=== PATIENT | female | born 1995 | race Caucasian/White ===

== ENCOUNTER 2025-05-10 12:12 | Outpatient (CLI) | payer MEDICAID, SELFPAY ==
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
--- OUTSIDE RECORDS SUMMARY | 2025-04-13 15:00 | XMS_ITS | Encounter Summary ---
Author Organization [facility] Address [address] [place] [address] Care Team Providers Care Automat Car Attendant Name Role Phone Itzel Hoffmann TIRE RECAPPING MACHINE OPERATOR Primary Care Provider [phone]- [phone] Reason for Visit * Reason Comments Follow-up Encounter Details Date Type Department Care Team (Late st Contact Info) Description 04/13/2025 3:00 PM EDT Office Visit [facility] [address] [place] [phone] Itzel Hoffmann, TIRE RECAPPING MACHINE OPERATOR [address] [place] [address] [phone] Anxiety with depression (Primary Dx) Social History [...] Sign Reading Time Taken Comments Blood Pressure 106/74 04/13/2025 2:51 PM EDT Pulse 74 04/13/2025 2:51 PM EDT Temperature 36.7 C (98 F) 04/13/2025 2:51 PM EDT Respiratory Rate 16 04/13/2025 2:51 PM EDT Oxygen Saturation 98% 04/13/2025 2:51 PM EDT Inhaled Oxygen Concentration - - Weight 62.1 kg (137 lb) 04/13/2025 2:51 PM EDT Height 157.5 cm (5' 2 ) 04/13/2025 2:51 PM EDT Body Mass Index 25.06 04/13/2025 2:51 PM EDT documented in this encounter Progress Notes * Itzel Hoffmann, TIRE RECAPPING MACHINE OPERATOR - 04/19/2025 9:07 PM EDTAssociated Problem(s): Anxiety with depression Patient [...] her with the transition. Patient has now in herthird week of weaning per our guidelines. -Patient now having to see counseling service through [facility] per [facility] order -Continue lamotrigine 100mg daily -Continue zoloft 50mg daily -Weaning klonopin as follows: Klonopin 1mg daily x 14 day Klonopin 0.5mg daily x 14 days Klonopin 0.5mg every other day x 14 days then DC -She has hydroxyzine 25mg three times daily PRN for breakthrough anxiety -Follow up in two weeks * Itzel Hoffmann APRN - 04/13/2025 3:00 PM EDT Images from the original note were not included. Office Note Name: Joyce Awad : 1995 Chief Complaint Follow-up Subjective History of Present Illness: Joyce Awad is a 29 y.o. female who presents today for taking follow-up on tapering of benzodiazepines. Patient was taken to [facility] via EMS with suicidal ideation and overdosing on klonopin andcarvedilol. Patient had never attempted any form of [...] made her mean . We then conducted [employer] test which led us to start lamotrigine. During our first follow up after starting lamotrigine, patient stated she felt like lamotrigine was helping, her friend had noticed she seems to be less triggered by things that would normally send her into a fit of rage or panic. In addition to her lamotrigine patient was startedon Zoloft at 50 mg daily dosing as [...] her children and fishing. Since DC from [facility] facility she is now trying to wean from klonopin. She was offered rehab but wanted she and I to work on a weaning plan together instead. Patient is now staying with her mother who is helping her with the transition. Patient is now in her third week of weaning per our guidelines. She states it has been rough on at least two occasions, she was begging her mother for klonopin but her mother did not give in. She feels it is getting easier everyday. She does have sparingly used hydroxyzine for breakthrough panic. Review of Systems Constitutional: Negative for fatigue. Respiratory: Negative for cough, chest tightness and shortness of breath. Cardiovascular: Negative for chest pain, palpitations and leg swelling. Gastrointestinal: Negative for abdominal pain, diarrhea, nausea and vomiting. Neurological: Negative for dizziness, weakness, light-headedness and headache. Psychiatric/Behavioral: Positive for stress. Negative for agitation, self- injury, sleep disturbance, suicidal ideas and depressed mood. Objective Past Medical History: Diagnosis Date Abnormal [...] No Known Problems Brother Vital Signs BP 106/74 (BP Location: Left arm, Patient Position: Sitting, Cuff Size: Adult) Pulse 74 Temp 98??F (36.7 ??C) (Temporal) Resp 16 Ht 157.5 cm (62 ) Wt 62.1 kg (137 lb) SpO2 98% BMI 25.06 kg/m?? Estimated body mass index is 25.06 kg/m?? as calculated from the following: Height as of this encounter: 157.5 cm (62 ). Weight as of this encounter: 62.1 kg (137 lb). Facility age limit for growth %chris [...] orders placed or performed in visit on 04/13/25 Urine Drug Screen - Urine, Clean Catch Collection Time: 04/13/25 2:59 PM Specimen: Urine, Clean Catch Urine Release to andrew Result Value Ref Range Amphetamine, Urine Qual Negative [place]vk[place]=6516 ng/mL Barbiturates Screen, Urine Negative Gqtyll=814 ng/mL Benzodiazepine Screen, Urine Negative Gaioyf=890 ng/mL THC Screen, Urine Negative Cutoff=20 ng/mL Cocaine Screen, Urine Negative Uvxtjn=704 ng/mL Opiate Screen, Urine Negative Rayvfi=731 ng/mL Oxycodone/Oxymorphone, Urine Negative Sfgejv=757 ng/mL Phencyclidine (PCP), Urine Negative Cutoff=25 ng/mL Methadone Screen, Urine Negative Jommak=714 ng/mL Propoxyphene Screen Negative Mmnsks=358 ng/mL Creatinine, Urine 244.4 20.0 - 300.0 mg/dL pH, UA 5.3 4.5 - 8.9 Please note Comment Assessment and Plan Diagnoses and all orders [...] made her mean . We then conducted [employer] test which led us to start lamotrigine. [...] her with the transition. Patient has now in herthird week of weaning per our guidelines. -Patient now having to see counseling service through [facility] per [facility] order -Continue lamotrigine 100mg daily -Continue zoloft 50mg daily -Weaning klonopin as follows: Klonopin 1mg daily x 14 day Klonopin 0.5mg daily x 14 days Klonopin 0.5mg every other day x 14 days then DC -She has hydroxyzine 25mg three times daily PRN for breakthrough anxiety -Follow up in two weeks Orders: - Urine Drug Screen - Urine, Clean Catch; Future - Urine Drug Screen - Urine, Clean Catch Follow Up Return in about 4 weeks (around 05/11/2025) for Next scheduled follow up. Itzel Hoffmann APRN documented in this encounter Plan of Treatment Upcoming Encounters Date Type Department Care Team (Late st Contact Info) Description 05/11/2025 10:45 AM EDT Office Visit [facility] [address] [place] [address] [place] [phone] Itzel Hoffmann, TIRE RECAPPING MACHINE OPERATOR [address] [place] [address] 06/04/2025 9:00 AM EDT Office Visit [facility] [address] [place] [phone] Itzel Hoffmann, TIRE RECAPPING MACHINE OPERATOR [address] [place] [address] 06/08/2025 2:00 PM EDT Office Visit [facility] [address] [place] [phone] Itzel Hoffmann, TIRE RECAPPING MACHINE OPERATOR [address] [place] [address] 05/07/2026 11:30 AM EDT Office Visit [facility] [address] [facility] [place] [phone] Brook Barrera, MAIK [address] [place], [place] [id number] documented as of this encounter Procedures Procedure Name Priority Date/Time Associated Diagnosis Comments URINE DRUG SCREEN Routine 04/13/2025 2:5 9 PM EDT Anxiety with depression documented in this encounter Results * Urine Drug Screen - Urine, Clean Catch (04/13/2025 2:59 PM EDT) Amphetamine, Urine Qual Negative Cutoff=10 00 ng/mL [facility] Barbiturates Screen, Urine Negative Cutoff=20 0 ng/mL [facility] Benzodiazepine Screen, Urine Negative Cutoff=20 0 ng/mL [facility] THC Screen, Urine Negative Cutoff=20 ng/mL [facility] Cocaine Screen, Urine Negative Cutoff=30 0 ng/mL [facility] Opiate Screen, Urine Negative Cutoff=30 0 ng/mL [facility] Comment:Opiate test includes Codeine, Morphine, Hydromorphone, Hydrocodone. Oxycodone/Oxymorph one, Urine Negative Cutoff=10 0 ng/mL [facility] Comment:Test includes Oxycod one and Oxymorphone Phencyclidine (PCP), Urine Negative Cutoff=25 ng/mL [facility] Methadone Screen, Urine Negative Cutoff=30 0 ng/mL [facility] Propoxyphene Screen Negative Cutoff=30 0 ng/mL [facility] Creatinine, Urine 244.4 20.0 - 300.0 mg/dL [facility] pH, UA 5.3 4.5 - 8.9 [facility] Please note Comment [facility] Comment: This assay provides a preliminary unconfirmed analytical test result that may be suitable for clinical management of patients in certain situations. Drug-test results should be interpreted in the context of clinical information. Patient metabolic variables, specific drug chemistry, and specimen characteristics can affect test outcome. Technical consultation is available if a test result is inconsistent with an expected outcome. Email: [email or web address] Urine Urine specimen obtained by clean catch procedure / Unknown 04/13/2025 2:59 PM EDT 04/13/2025 Comment:Urine Release to [facility]ay[facility] (AMBULATORY) - 04/14/2025 8:07 PM EDT Performed at: 01 - [facility] [address] [place], [place] [id number] Cementer Hand: Shira Sears PhD, Phone: [phone] Itzel Hoffmann APRN URINE ORDERABLES Final Resu lt [facility] ([facility]) [address] [place] [address], [place] [phone] [facility] [address] [place] [address], [place] [phone] documented in this encounter Visit Diagnoses Diagnosis Anxiety with depression- Primary documented in this encounter Care Teams Automat Car Attendant Relationship Specialty Start Date End Date Itzel Hoffmann APRN [address] [place], [place] [id number] PCP - General Family Medicine 10/06/24 documented as of this encounter
--- OUTSIDE RECORDS SUMMARY | 2025-05-02 10:30 | XMS_ITS | Encounter Summary ---
[facility] Address [address] [place] [address] Care Team Providers Care Staff Cytotechnologist Name Role Phone Itzel Hoffmann APRN Primary Care Provider [phone] Reason for Referral * Durable Medical Equipment (Routine) - Authorized Specialty Diagnoses / Procedures Referred By Contac t Referred To Contact Diagnoses JOHNATHAN (obstructive sleep apnea) Palpitations Procedures PAP Therapy Brook Barrera APRN [address] [place] [address] Phone: tel: fax: TOOTIE KALLIE MACHADO [address] [place] [address] Phone: tel: fax: Referral ID Status Reason Start Date Expiration Date V isits Requested Visits Authorized [id number] Authorized 05/02/2025 08/01/2026 1 1 Reason for Visit * Reason Comments Sleep Apnea Pt is here for a fol low up on JOHNATHAN. Pt states her PAP is broken and needs a new one. Pt hasn't used PAP in 2-3 months. Pt states she has SOA, palpitations, dizziness. No falls, no chest pain. Pt states she is exhausted everyday Encounter Details Date Type Department Care Team (Late st Contact Info) Description 05/02/2025 10:30 AM EDT Office Visit [facility] [address] [place] [phone] Brook Barrera APRN [address] [place] [id number] JOHNATHAN (obstructive sleep apnea) (Primary Dx); Palpitations Social History Tobacco Use Types Packs/Day Years [...] Sign Reading Time Taken Comments Blood Pressure 116/64 05/02/2025 10:44 AM EDT Pulse 72 05/02/2025 10:44 AM EDT Temperature 36.7 C (98 F) 05/02/2025 10:44 AM EDT Respiratory Rate - - Oxygen Saturation 98% 05/02/2025 10:44 AM EDT Inhaled Oxygen Concentration - - Weight 61.7 kg (136 lb) 05/02/2025 10:44 AM EDT Height 157.5 cm (5' 2 ) 05/02/2025 10:44 AM EDT Body Mass Index 24.87 05/02/2025 10:44 AM EDT documented in this encounter Progress Notes * Brook Barrera APRN - 05/02/2025 10:30 AM EDT Images from the original note were not included. Date: 05/02/2025 Name: Joyce Awad : 1995 PCP: Itzel Hoffmann APRN REF: No ref. provider found Sleep and/or Cardiology Consulting Provider Note ..Sleep Apnea (Pt is here for a follow up on JOHNATHAN. Pt states her PAP is broken and needs a new one. Pt hasn't used PAP in 2-3 months. Pt states she has SOA, palpitations, dizziness. No falls, no chestpain. Pt states she is exhausted everyday ) History of Present Illness The patient presents to follow up on obstructive sleep apnea and palpitations. She has been using a PAP machine, which has significantly improved her condition. However, insurance will only cover the cost of a new machine every 5 years and her machine stopped working. She is considering purchasing a used machine for $200 to $400. She reports losing 40 pounds since discontinuing the use of the machine approximately 4 months ago and has not lost any more weight since then. She inquires about the necessity of a new sleep study and whether she can continue using the machine nightly without any harm. She continues to take carvedilol for palpitations, as prescribed by Dr. Sosa. SOCIAL HISTORY Marital Status: Tobacco: The patient smokes cigarettes. Coffee/Tea/Caffeine-containing Drinks: The patient drinks coffee. [place] Scale is (out of 24): Total score: 17 No specialty comments available. Medications Discontinued During This Encounter Medication Reason carvedilol (COREG) 6.25 MG tablet Patient Reported Not Taking clonazePAM (KlonoPIN) 1 MG tablet *Therapy completed fluticasone (FLONASE) 50 MCG/ACT nasal spray *Therapy completed Allergies Allergen Reactions Clindamycin Other (See Comments) Pt states she felt like bugs were biting her all over Current Outpatient Medications: albuterol sulfate HFA 108 (90 Base) MCG/ACT inhaler, , Disp: , Rfl: carvedilol (COREG) 3.125 MG tablet, Take 1 tablet by mouth 2 (Two) Times a Day With Meals., Disp: ,Rfl: hydrOXYzine pamoate (VISTARIL) 25 MG capsule, Take 1 capsule by mouth 3 (Three) Times a Day As Needed for Anxiety., Disp: 90 capsule, Rfl: 0 lamoTRIgine (LaMICtal) 100 MG tablet, Take 1 tablet by mouth Daily., Disp: 90 tablet, Rfl: 1 levothyroxine (SYNTHROID, LEVOTHROID) 50 MCG tablet, Take 1 tablet by mouth Every Morning., Disp: 90 tablet, Rfl: 2 ondansetron (ZOFRAN) 8 MG tablet, Take 1 tablet by mouth Every 8 (Eight) Hours As Needed for Nauseaor Vomiting., Disp: 20 tablet, Rfl: 0 sertraline (ZOLOFT) 50 MG tablet, TAKE 1 TABLET BY MOUTH EVERY DAY, Disp: 30 tablet, Rfl: 0 Nicotine 21-14-7 MG/24HR kit, Place 1 patch on the skin as directed by provider Daily. (Patient nottaking: Reported on 05/02/2025), Disp: 56 each, Rfl: 0 Past Medical History: Diagnosis Date Abnormal electrocardiogram Anxiety disorder JOSÉ (generalized anxiety disorder) GERD without esophagitis History of normal Holter exam 03/2022 Hypertension Other chest pain Other hypersomnia Palpitations SOB (shortness of breath) Supraventricular tachycardia Thyroid disease Tobacco smoke exposure EXTENSIVE HISTORY OF SMOKE EXPOSURE Patient Active Problem List Diagnosis JOHNATHAN (obstructive sleep apnea) Palpitations Paroxysmal SVT (supraventricular tachycardia) Anxiety with depression Benign essential hypertension Hypothyroidism in adult Right-sided headache Overweight (BMI 25.0-29.9) Annual physical exam Chronic gastritis without bleeding Shortness of breath Post traumatic stress disorder (PTSD) Insomnia due to other mental disorder Family History Problem Relation Age of Onset No Known Problems Sister No Known Problems Brother family history includes No Known Problems in her brother and sister. Social History Socioeconomic History Marital status: Tobacco Use Smoking status: Every Day Current packs/day: 1.00 Average packs/day: 1 pack/day for 0.7 years (0.7 ttl pk-yrs) Types: Cigarettes Start date: 08/10/2024 Smokeless tobacco: Never Vaping Use Vaping status: Former Passive vaping exposure: Yes Substance and Sexual Activity Alcohol use: Not Currently Drug use: Not Currently Sexual activity: Yes Vital Signs: BP 116/64 (BP Location: Right arm, Patient Position: Sitting, Cuff Size: Adult) Pulse 72 Temp 98 ??F (36.7 ??C) (Infrared) Ht 157.5 cm (62 ) Wt 61.7 kg (136 lb) SpO2 98% BMI 24.87 kg/m?? Estimated body mass index is 24.87 kg/m?? as calculated from the following: Height as of this encounter: 157.5 cm (62 ). Weight as of this encounter: 61.7 kg (136 lb). Physical Exam Vitals reviewed. Constitutional: Appearance: Normal appearance. She is well-developed. HENT: Head: Normocephalic and atraumatic. Eyes: General: No scleral icterus. Pupils: Pupils are equal, round, and reactive to light. Cardiovascular: Rate and Rhythm: Normal rate and regular rhythm. Heart sounds: Normal heart sounds. No murmur heard. Pulmonary: Breath sounds: Normal breath sounds. No wheezing or rhonchi. Musculoskeletal: General: Normal range of motion. Right lower leg: No edema. Left lower leg: No edema. Skin: General: Skin is warm and dry. Capillary Refill: Capillary refill takes less than 2 seconds. Coloration: Skin is not cyanotic. Nails: There is no clubbing. Neurological: Mental Status: She is alert and oriented to person, place, and time. Motor: No weakness. Gait: Gait normal. Psychiatric: Mood and Affect: Mood normal. Behavior: Behavior is cooperative. Thought Content: Thought content normal. Physical Exam Results Assessment and Plan Diagnoses and all orders for this visit: 1. JOHNATHAN (obstructive sleep apnea) (Primary) - PAP Therapy 2. Palpitations - PAP Therapy Assessment & Plan 1. Obstructive Sleep Apnea: - Significant improvement in symptoms reported with the use of the PAP machine. - A new prescription for the PAP machine will be provided, maintaining the same pressure settings. - Advised to contact the office if any issues arise with the new machine. - If discomfort with the pressure settings occurs, she can return for an adjustment or communicate via phone or message for a download check. - The order for the PAP machine will be sent to [facility] in [place]. - If no response from [facility] by Wednesday, she should contact them directly. - Her most recent PAP download before her machine stopped working shows that her pressure is consistently above the starting pressure of 8, she also reports still waking up gasping for air, and feelsvery poorly since she has been unable to use her machine. This is evidence that she continues to need her CPAP despite losing weight. No need to repeat study at this time. 2. Palpitations: - Currently taking carvedilol, prescribed by Dr. Sosa. - Advised to continue this medication. - If palpitations do not return to their normal level within a few weeks of resuming PAP therapy, areview of her condition will be necessary. Recommendations: ER if symptoms increase and Report if any new/changing symptoms immediately Follow Up Return in about 1 year (around 05/02/2026) for JOHNATHAN. Patient or patient manufacturing sales representative verbalized consent for the use of Ambient Listening during the visit with Brook Barrera APRN for chart documentation. 05/02/2025 18:06 EDT Brook Barrera APRN 05/02/2025 Please note that this explicitly excludes time spent on other separate billable services such as performing procedures or test interpretation, when applicable. This note was created using dictation software which occasionally transcribes nonsensical phrases. Please contact the provider if any clarification is needed. documented in this encounter Plan of Treatment Upcoming Encounters Date Type Department Care Team (Late st Contact Info) Description 05/11/2025 10:45 AM EDT Office Visit [address] [place] [phone] Itzel Hoffmann APRN [address] [place] [address] 06/04/2025 9:00 AM EDT Office Visit [address] [place] [phone] Itzel Hoffmann APRN [address] [place] [address] 06/08/2025 2:00 PM EDT Office Visit [address] [place] [phone] Itzel Hoffmann APRN [address] [place] [address] 05/07/2026 11:30 AM EDT Office Visit [facility] [address] [place] [phone] Brook Barrera APRN [address] [place] [address] documented as of this encounter Visit Diagnoses Diagnosis JOHNATHAN (obstructive sleep apnea)- Primary Obstructive sleep apnea (adult) (pediatric) Palpitations documented in this encounter Care Teams Staff Cytotechnologist Relationship Specialty Start Date End Date Itzel Hoffmann APRN [address] [phone] PCP - General Family Medicine 10/06/24 documented as of this encounter
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
--- OUTSIDE RECORDS SUMMARY | 2025-05-10 12:15 | XMS_ITS | Encounter Summary ---
[facility] [address] [place] [address] Care Team Providers Care Vice President Quality Improvement Name Role Phone Itzel Hoffmann Orlando PLEITEZ Primary Care Provider [phone] Encounter Details Date Type Department Care Team (Late st Contact Info) Description 04/02/2025 Refill [facility] [address] [place] [address] [place] [address] Gamal Diamond MD [address] [place], [place] [id number] Severe anxiety with panic Social History Tobacco Use Types Packs/Day Years [...] on file documented as of this encounter Miscellaneous Notes * Telephone Encounter - Elizabeth Aldana MA - 04/02/2025 1:40 PM EDT Pt was seen on 03/22 for f/u weaning of klonopin. It was discussed in Itzel's note that pt was to go from 1mg klonopin daily to 0.5mg daily x14 days and then 0.5mg every other day then DC completley.Itzel forgot to send in a refill of medication to complete the weaning process. She is completelyout and needs enough to get through the next 28 days. documented in this encounter Plan of Treatment Upcoming Encounters Date Type Department Care Team (Late st Contact Info) Description 05/11/2025 10:45 AM EDT Office Visit [facility] [address] [place] [address] [place] [phone] Itzel Hoffmann APRN [address] [place] [address] 06/04/2025 9:00 AM EDT Office Visit [facility] [address] [place] [phone] Itzel Hoffmann APRN [address] [place] [address] 06/08/2025 2:00 PM EDT Office Visit [facility] [address] [place] [address] [place] [phone] Itzel Hoffmann APRN [address] [place] [address] 05/07/2026 11:30 AM EDT Office Visit [facility] [address] [place] [phone] Brook Barrera APRN [address] [place] [address] documented as of this encounter Visit Diagnoses Diagnosis Severe anxiety with panic documented in this encounter Care Teams Vice President Quality Improvement Relationship Specialty Start Date End Date Itzel Hoffmann APRN [address] [place] [address] PCP - General Family Medicine 10/06/24 documented as of this encounter
--- OUTSIDE RECORDS SUMMARY | 2025-05-10 12:15 | XMS_ITS | Encounter Summary ---
[facility] [address] [place] [address] Care Team Providers Care Pacu Nurse Name Role Phone Itzel Hoffmann APRN Primary Care Provider [phone] Reason for Visit * Reason Comments Med Refill Encounter Details Date Type Department Care Team (Late st Contact Info) Description 03/23/2025 Refill [facility] [address] [place] [phone] Itzel Hoffmann APRN [address] [place] [address] Social History Tobacco Use Types Packs/Day Years [...] encounter Miscellaneous Notes * Telephone Encounter - Celina Hudson MA - 03/26/2025 8:49 AM EDT Rx sent documented in this encounter Plan of Treatment Upcoming Encounters Date Type Department Care Team (Late st Contact Info) Description 05/11/2025 10:45 AM EDT Office Visit [facility] [address] [place] [address] [place] [address] Itzel Hoffmann APRN [address] [place] [address] 06/04/2025 9:00 AM EDT Office Visit [address] [place] [address] Itzel Hoffmann PILOT TEACHER [address] [place], [place] [id number] 06/08/2025 2:00 PM EDT Office Visit [address] [place] [address] Itzel Hoffmann APRN [address] [place] [address] 05/07/2026 11:30 AM EDT Office Visit [facility] [address] [place] [address] Brook Barrera APRN [address] [place] [address] documented as of this encounter Visit Diagnoses Not on filedocumented in this encounter Care Teams Pacu Nurse Relationship Specialty Start Date End Date Itzel Hoffmann APRN [address] [place] [address] PCP - General Family Medicine 10/06/24 documented as of this encounter
--- OUTSIDE RECORDS SUMMARY | 2025-05-10 12:15 | XMS_ITS | Encounter Summary ---
[facility] Address [address] [place] [address] Care Team Providers Care Chemist Steroids Name Role Phone Itzel Hoffmann ENGINEERING TECHNICAL SPECIALIST Primary Care Provider [phone] Reason for Visit * Reason Onset Date Comments CALLBACK 05/08/2025 Encounter Details Date Type Department Care Team (Late st Contact Info) Description 05/08/2025 Telephone [facility] [address] [place] [phone] Itzel Hoffmann, ENGINEERING TECHNICAL SPECIALIST [address] [place], [place] [id number] CALLBACK Social History Tobacco Use Types Packs/Day Years [...] encounter Miscellaneous Notes * Telephone Encounter - Leny Mueller 05/08/2025 1:24 PM EDT I have spoke with Vicky and have let her know that the drug screen was negative. S[facility] [place] has checked and we are to give social professionals what they need with there being an investigation. * Telephone Encounter - Joe Dunn RegSched Rep - 05/08/2025 10:55 AM EDT Caller: RICHARD - [facility] Relationship: Best call back number: [phone] What is the best time to reach you: ANY TIME BEFORE 4:30 PM Who are you requesting to speak with (clinical staff, provider, specific staff member): CLINICAL STAFF Do you know the name of the person who called: RICHARD What was the call regarding: RICHARD WITH [facility] IS ASKING FOR A CALLBACK WITHTHE DRUG SCREENING RESULT FOR HER CLIENT. OKAY TO LEAVE SECURE VM. documented in this encounter Plan of Treatment Upcoming Encounters Date Type Department Care Team (Late st Contact Info) Description 05/11/2025 10:45 AM EDT Office Visit [address] [place] [phone] Itzel Hoffmann APRN [address] [place] [address] 06/04/2025 9:00 AM EDT Office Visit [address] [place] [phone] Itzel Hoffmann APRN [address] [place] [address] 06/08/2025 2:00 PM EDT Office Visit [address] [place] [phone] Itzel Hoffmann APRN [address] [place] [address] 05/07/2026 11:30 AM EDT Office Visit [facility] [address] [place] [address] Brook Barrera APRN [address] [place] [address] documented as of this encounter Visit Diagnoses Not on filedocumented in this encounter Care Teams Chemist Steroids Relationship Specialty Start Date End Date Itzel Hoffmann APRN [address] [place] [address] PCP - General Family Medicine 10/06/24 documented as of this encounter
--- OUTSIDE RECORDS SUMMARY | 2025-05-10 12:15 | XMS_ITS | Encounter Summary ---
Author Organization [facility] Address [address] [place] [address] Care Team Providers Care Ostomy Nurse Name Role Phone Arianna Donnelly APRN Primary Care Provider [phone] Cora Razo MD Primary Care Provider [phone] System, Provider Not In MD Primary Care Provider Unavailable Cora Razo MD Unavailable [phone] Reason for Visit * Reason Onset Date Comments Med Refill 10/02/2022 Encounter Details Date Type Department Care Team (Late st Contact Info) Description 10/02/2022 Refill [facility] [address] [place] [address] Arianna Donnelly APRN [address] [place] [address] Social History Tobacco Use Types Packs/Day Years Used Date Smoking Tobacco: Former Smokeless Tobacco: Never PHQ-2 Answer Date Recorded Patient Health Questionnaire-2 Score 1 03/14/2021 Comments Unknown Sex and Gender Information Value Date Recorded Sex Assigned at Not on file Legal Sex Female 6:44 PM EDT Gender Identity Not on file Sexual Orientation Not on file documented as of this encounter Plan of Treatment Not on file documented as of this encounter Visit Diagnoses Not on filedocumented in this encounter Care Teams Ostomy Nurse Relationship Specialty Start Date End Date Arianna Donnelly APRN [address] [place] [address] PCP - General 01/31/21 11/02/22 Cora Razo MD [address] [place] [address] PCP - General 11/03/22 03/10/25 System, Provider Not In, [address] [place] [address] PCP - General Family Medicine 03/11/25 Cora Razo MD [address] [place] [address] 03/11/25 documented as of this encounter
--- OUTSIDE RECORDS SUMMARY | 2025-05-10 12:15 | XMS_ITS | Clinical Summary ---
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 Itzel Hoffmann ERP CONSULTANT URINE ORDERABLES Final Resu lt [facility] (AMBULATORY) [address] [place] [address], [facility] [address] [place] [address], * TSH (05/03/2025 1:51 PM EDT) TSH 0.866 0.450 - 4.500 uIU/mL [facility] Blood Structure of left upper limb / Unknown 05/03/2025 1:51 PM EDT 05/03/2025 Comment:Blood Release to [facility] (AMBULATORY) - 05/04/2025 10:07 AM EDT Performed at: - [facility] [address] [place], [place] [id number] Sign Writer Hand: Carlo Quiros PhD, Phone: [phone] Itzel Hoffmann APRN LAB BLOOD ORDERABLES Final Result Performing Organization Address [facility]/ZIP Co de Phone Number [facility] (AMBULATORY) [address] [place] [address], [facility] [address] [place] [address], * T4, Free (05/03/2025 1:51 PM EDT) Free T4 1.29 0.82 - 1.77 ng/dL [facility] Blood Structure of left upper limb / Unknown 05/03/2025 1:51 PM EDT 05/03/2025 Comment:Blood Release to [facility] (AMBULATORY) - 05/04/2025 10:07 AM EDT Performed at: [facility] [address] [place] [id number] Sign Writer Hand: Carlo Quiros PhD, Phone: [phone] Itzel Hoffmann APRN LAB BLOOD ORDERABLES Final Result Performing Organization Address [facility]/ZIP Co de Phone Number [facility] (AMBULATORY) [address] [place] [address], [facility] [address] [place] [address], * Pulmonary Results Scan (02/19/2025) Dunia Cervantes MD PFT ORDERABLES Final Result * Hepatitis C Antibody (11/03/2024 11:39 AM EST) Hep C Virus Ab Non Reactive Non Reactive [facility] Comment: HCV antibody alone does not differentiate between previously resolved infection and active infection. Equivocal and Reactive HCV antibody results should be followed up with an HCV RNA test to support the diagnosis of active HCV infection. Blood Structure of left upper limb / Unknown 11/03/2024 11:39 AM EST 11/03/2024 Comment:Blood Release to cha cooney Nayeli [facility] (AMBULATORY) - 11/04/2024 6:06 AM EST Performed at: 01 - [facility] [address] [place], [place] [id number] Sign Writer Hand: Carlo Quiros PhD, Phone: [phone] Itzel Hoffmann APRN LAB BLOOD ORDERABLES Final Result [facility] [address] [place] [address], [place] [phone] [facility] [address] [place] [address], [place] [phone] from Last 3 Months or Most Recently Relevant to Health Maintenance Insurance [employer] Care Teams Overlocker Relationship Specialty Start Date End Date Itzel Hoffmann APRN [address] [phone] PCP - General Family Medicine 10/06/24
--- OUTSIDE RECORDS SUMMARY | 2025-05-10 12:15 | XMS_ITS | Encounter Summary ---
Author Organization Healthcare Address [address] [place] [address] Care Team Providers Care Ip Counsel Name Role Phone Arianna Donnelly APRN Primary Care Provider [phone] Sun Razo MD Primary Care Provider [phone] System, Provider Not In MD Primary Care Provider Unavailable Sun Razo MD Unavailable [phone] Encounter Details Date Type Department Care Team (Late st Contact Info) Description 07/14/2021 Outside Procedure External Location [address] [place] [address] Provider, [facility] Social History Tobacco Use Types Packs/Day Years [...] Procedure Name Priority Date/Time Associated Diagnosis Comments US THYROID 07/14/2021 9:50 AM EDT documented in this encounter Results * US Thyroid (07/14/2021 9:50 AM EDT) Anatomical Region Laterality Modality Thyroid, Neck Ultrasound 07/14/2021 9:50 AM EDT Narrative 07/14/2021 12:27 PM EDT [address] [address] Name: JOYCE WAYNE Exam Date: 07/14/2021 : 1995 Age 25 Gender: F Physician: SUN RAZO Facility: [facility] Facility HSV: Outpatient Exam: THYROID US THYROID ULTRASOUND HISTORY: Thyromegaly FINDINGS: SIZE: Normal. Right thyroid lobe measures 5.0 x 2.2 x 1.3 cm. Left lobe measures 4.7 x 1.4 x 1.0 cm. ECHOGENICITY: Homogeneous LESIONS: No focal lesion OTHER: No additional findings IMPRESSION: Unremarkable thyroid evaluation TI-RADS Not applicable RECOMMENDATION: No additional follow-up needed at this time Dictated By: GRADY ODOM Transcribed By: Samantha Chauhan Transcribed On: 07/14/2021 10:52 AM Electronically signed by: GRADY ODOM 07/14/2021 Thank you for referring JOYCE WAYNE to [facility]. Legally authenticated by LEI DRISCOLL 2021-07-14 12:14:13 Procedure Note Provider, [facility] - 07/14/2021 [place] [address] Name: JOYCE WAYNE Exam Date: 07/14/2021 : 1995 Age 25 Gender: F Physician: SUN RAZO Facility: [facility] Facility HSV: Outpatient Exam: THYROID US THYROID ULTRASOUND HISTORY: Thyromegaly FINDINGS: SIZE: Normal. Right thyroid lobe measures 5.0 x 2.2 x 1.3 cm. Leftlobe measures 4.7 x 1.4 x 1.0 cm. ECHOGENICITY: Homogeneous LESIONS: No focal lesion OTHER: No additional findings IMPRESSION: Unremarkable thyroid evaluation TI-RADS Not applicable RECOMMENDATION: No additional follow-up needed at this time Dictated By: GRADY ODOM Transcribed By: Samantha Chauhan Transcribed On: 07/14/2021 10:52 AM Electronically signed by: GRADY ODOM 07/14/2021 Thank you for referring JOYCE WAYNE to [facility]. Legally authenticated by LEI DRISCOLL 2021-07-14 12:14:13 us Generic [place] Provider IMG US PROCEDURES Fi nal Result documented in this encounter Visit Diagnoses Not on filedocumented in this encounter Additional Health Concerns Infection Onset Date Last Indicated Resolved Time COVID-19 Rule-Out 07/21/2022 07/21/2022 07/21/2022 6:28 PM EDT COVID 19 (Confirmed) 07/21/2022 07/21/2022 022 5:25 AM EST COVID-19 Rule-Out 08/30/2022 08/30/2022 08/30/2022 11:06 PM EST documented as of this encounter Care Teams Ip Counsel Relationship Specialty Start Date End Date Arianna Donnelly APRN [address] [place] [phone] PCP - General 01/31/21 11/02/22 Sun Razo MD [address] [place] [address] PCP - General 11/03/22 03/10/25 System, Provider Not In, [address] [place] [address] PCP - General Family Medicine 03/11/25 Sun Razo MD [address] [place] [address] 03/11/25 documented as of this encounter
--- OUTSIDE RECORDS SUMMARY | 2025-05-10 12:15 | XMS_ITS | Encounter Summary ---
Author Organization Healthcare Address [address] [place] [address] Care Team Providers Care Color Print Inspector Name Role Phone Arianna Donnelly APRN Primary Care Provider [phone] Cora Razo MD Primary Care Provider [phone] System, Provider Not In MD Primary Care Provider Unavailable Cora Razo MD Unavailable [phone] Reason for Visit * Reason Comments Med Refill Encounter Details Date Type Department Care Team (Late st Contact Info) Description 05/28/2021 Refill [place] OIL TANK CAR CLEANER [address] [place] [address] Veronica Gant MD [address] [place] [phone] Social History Tobacco Use Types Packs/Day Years Used Date Smoking Tobacco: Former Smokeless Tobacco: Never PHQ-2 Answer Date Recorded Patient Health Questionnaire-2 Score 1 03/14/2021 Comments Unknown Sex and Gender Information Value Date Recorded Sex Assigned at Not on file Legal Sex Female 6:44 PM EDT Gender Identity Not on file Sexual Orientation Not on file COVID-19 Exposure Response Date Recorded In the last month, have you been in contact with someone who was confirmed or suspected to have Coronavirus / COVID-19? No / Unsure 05/02/2021 10:16 AM EDT documented as of this encounter Plan of [...] documented as of this encounter Care Teams Color Print Inspector Relationship Specialty Start Date End Date Arianna Donnelly APRN [address] [place] [address] PCP - General 01/31/21 11/02/22 Cora Razo MD [address] [place] [address] PCP - General 11/03/22 03/10/25 System, Provider Not In, [address] [place] [address] PCP - General Family Medicine 03/11/25 Cora Razo MD [address] [place] [address] 03/11/25 documented as of this encounter
--- OUTSIDE RECORDS SUMMARY | 2025-05-10 12:15 | XMS_ITS | Encounter Summary ---
Author Organization Healthcare Address [address] [place] [address] Care Team Providers Care Production Welder Name Role Phone Arianna Donnelly APRN Primary Care Provider [phone] Cora Razo MD Primary Care Provider [phone] System, Provider Not In MD Primary Care Provider Unavailable Cora Razo MD Unavailable [phone] Reason for Visit * Reason Comments Med Refill Encounter Details Date Type Department Care Team (Late st Contact Info) Description 07/10/2021 Refill [place] FERTILIZER PROCESSING SUPERVISOR [address] [place] [address] Nena Mosley APRN, [facility] [address] [place] [address] Social History Tobacco Use Types Packs/Day Years [...] documented as of this encounter Care Teams Production Welder Relationship Specialty Start Date End Date Arianna Donnelly APRN [address] [place] [address] PCP - General 01/31/21 11/02/22 Cora Razo MD [address] [place] [address] PCP - General 11/03/22 03/10/25 System, Provider Not In, [address] [place] [address] PCP - General Family Medicine 03/11/25 Cora Razo MD [address] [place] [address] 03/11/25 documented as of this encounter
--- OUTSIDE RECORDS SUMMARY | 2025-05-10 12:15 | XMS_ITS | Encounter Summary ---
Author Organization [facility] Address [address] [place] [address] Care Team Providers Care Site Controller Name Role Phone Arianna Donnelly APRN Primary Care Provider [phone] Cora Razo MD Primary Care Provider [phone] System, Provider Not In MD Primary Care Provider Unavailable Cora Razo MD Unavailable [phone] Reason for Visit * Reason Comments Med Refill Encounter Details Date Type Department Care Team (Late st Contact Info) Description 07/18/2022 Refill [facility] [address] [place] [address] Arianna Donnelly APRN [address] [place] [address] Social History Tobacco Use Types [...] Exposure Response Date Recorded In the last 10 days, have yo u been in contact with someone who was confirmed or suspected to have Coronavirus/COVID-19? Yes 07/21/2022 2:25 PM EDT documented as of this encounter Functional Status * Calculated C-SSRS Risk Score (Lifetime/Recent) Answer Date of Assessment Author No Risk Indicated 07/21/2022 7:36 PM EDT Becky Laughlin, RN * Question Answer Date of Assessment Author 1. Wish to be (Past 1 Month) No 7:36 PM EDT Becky Laughlin, FRANCES 2. Non-Specific Active Suici ashvin Thoughts (Past 1 Month) No 07/21/2022 7:36 PM EDT Jorge Laughlin, RN 6. Suicidal Behavior (Lifetime) No 7:36 PM EDT Becky Laughlin, FRANCES documented as of this encounter Plan of Treatment Not on file documented as of this encounter Visit Diagnoses Not on filedocumented in this encounter Additional Health Concerns Infection Onset Date Last Indicated Resolved Time COVID-19 Rule-Out 07/21/2022 07/21/2022 07/21/2022 6:28 PM EDT COVID 19 (Confirmed) 07/21/2022 07/21/2022 5:25 AM EST COVID-19 Rule-Out 08/30/2022 08/30/2022 08/30/2022 11:06 PM EST documented as of this encounter Care Teams Site Controller Relationship Specialty Start Date End Date Arianna Donnelly APRN [address] [place] [address] PCP - General 01/31/21 11/02/22 Cora Razo MD [address] [place] [address] PCP - General 11/03/22 03/10/25 System, Provider Not In, [address] [place] [address] PCP - General Family Medicine 03/11/25 Cora Razo MD [address] [place] [address] 03/11/25 documented as of this encounter
--- OUTSIDE RECORDS SUMMARY | 2025-05-10 12:15 | XMS_ITS | Encounter Summary ---
Author Organization Healthcare Address [address] [place] [address] Care Team Providers Care Aerial Photograph Interpreter Name Role Phone Arianna Donnelly APRN Primary Care Provider [phone] Cora Razo MD Primary Care Provider [phone] System, Provider Not In MD Primary Care Provider Unavailable Cora Razo MD Unavailable [phone] Reason for Visit * Reason Comments Med Refill Encounter Details Date Type Department Care Team (Late st Contact Info) Description 06/21/2021 Refill [place] TRAILHEAD CONSTRUCTION WORKER [address] [place] [address] Nena Mosley APRN, [facility] [address] [place] [address] Social History Tobacco Use Types Packs/Day Years [...] documented as of this encounter Care Teams Aerial Photograph Interpreter Relationship Specialty Start Date End Date Arianna Donnelly APRN [address] [place] [address] PCP - General 01/31/21 11/02/22 Cora Razo MD [address] [place] [address] PCP - General 11/03/22 03/10/25 System, Provider Not In, [address] [place] [address] PCP - General Family Medicine 03/11/25 Cora Razo MD [address] [place] [address] 03/11/25 documented as of this encounter
--- NOTE | 2025-05-10 12:16 | XR_ITS ---
FINAL REPORT CLINICAL HISTORY: Assess fecal burden COMPARISON: None FINDINGS: A single view of the abdomen was obtained. There is a nonobstructive bowel gas pattern. There are no abnormally dilated loops of small bowel. There are no abnormal calcifications. IMPRESSION: Nonobstructive bowel gas pattern. Reviewed, Interpreted and Dictated by Sravan Gibbons MD Transcribed by Sandra Chávez Authenticated and . [facility]
--- OUTSIDE RECORDS SUMMARY | 2025-05-10 12:16 | XMS_ITS | Encounter Summary ---
Author Organization [facility] Address [address] [place] [address] Care Team Providers Care Warp Tier Name Role Phone Itzel Hoffmann APRN Primary Care Provider [phone] Encounter Details Date Type Department Care Team (Latest Contact Info) Description 04/13/2025 Travel Social History Tobacco Use Types Packs/Day Years [...] as of this encounter Plan of Treatment Upcoming Encounters Date Type Department Care Team (Late st Contact Info) Description 05/11/2025 10:45 AM EDT Office Visit [facility] [address] [place] [address] Itzel Hoffmann APRN [address] [place] [address] 06/04/2025 9:00 AM EDT Office Visit [facility] [address] [place] [address] [place] [address] Itzel Hoffmann APRN [address] [place], [place] [id number] 06/08/2025 2:00 PM EDT Office Visit [facility] [address] [place] [address] [place] [address] Itzel Hoffmann APRN [address] [place], [place] [id number] 05/07/2026 11:30 AM EDT Office Visit [facility] [address] [place] [address] Brook Barrera APRN [address] [place], [place] [phone] documented as of this encounter Visit Diagnoses Not on filedocumented in this encounter Care Teams Warp Tier Relationship Specialty Start Date End Date Itzel Hoffmann APRN [address] [place] [address] PCP - General Family Medicine 10/06/24 documented as of this encounter
--- OUTSIDE RECORDS SUMMARY | 2025-05-10 12:16 | XMS_ITS | Encounter Summary ---
[facility] Address [address] [place] [address] Care Team Providers Care Almond Roaster Name Role Phone TahiraItzel barnes Orlando PLEITEZ Primary Care Provider [phone] Reason for Visit * Reason Onset Date Comments BRIEN CERVANTES MD, APPT 04/11/2025 Encounter Details Date Type Department Care Team (Late st Contact Info) Description 04/11/2025 Telephone [facility] [address] [place] [address] Brien Cervantes MD [address] [place] [address] BRIEN CERVANTES MD, APPT Social History Tobacco Use Types Packs/Day Years [...] encounter Miscellaneous Notes * Telephone Encounter - Radha Alegre RegSched Rep - 04/11/2025 3:19 PM EDT Caller: Spencerjuan Joyce Relationship to patient: Self Best call back number: [phone] Chief complaint: Type of visit: FOLLOW UP Requested date: RANJANA If rescheduling, when is the original appointment: N/A Additional notes:PATIENT LAST IN OFFICE NOVEMBER 2022 NEEDS APPOINTMENT TO BE SEEN. PATIENT IS WAKING UP GASPING FOR AIR. PLEASE REACH OUT. documented in this encounter Plan of Treatment Upcoming Encounters Date Type Department Care Team (Late st Contact Info) Description 05/11/2025 10:45 AM EDT Office Visit [facility] [address] [place] [address] Itzel Hoffmann, MAIK [address] [place] [address] 06/04/2025 9:00 AM EDT Office Visit [address] [place] [address] Itzel Hoffmann, MACHINE LEATHER TRIMMER [address] [place] [address] 06/08/2025 2:00 PM EDT Office Visit [address] [place] [address] Itzel Hoffmann MACHINE LEATHER TRIMMER [address] [place] [address] 05/07/2026 11:30 AM EDT Office Visit [facility] [address] [place] [address] Brook Barrera APRN [address] [place] [address] documented as of this encounter Visit Diagnoses Not on filedocumented in this encounter Care Teams Almond Roaster Relationship Specialty Start Date End Date Itzel Hoffmann APRN [address] [place] [address] PCP - General Family Medicine 10/06/24 documented as of this encounter
--- OUTSIDE RECORDS SUMMARY | 2025-05-10 12:16 | XMS_ITS | Encounter Summary ---
Author Organization [facility] Address [address] [place] [address] Care Team Providers Care Back Hanger Name Role Phone System, Provider Not In MD Primary Care Provider Unavailable Cora Razo MD Unavailable [phone] Encounter Details Date Type Department Care Team (Latest Contact Info) Description 03/11/2025 Travel Social History Tobacco Use Types Packs/Day [...] on file documented as of this encounter Functional Status * Calculated C-SSRS Risk Score (Lifetime/Recent) Answer Date of Assessment Author High Risk 03/11/2025 9:00 PM Sunil Lima RN * Question Answer Date of Assessment Author 1. Wish to be (Past 1 Month) Yes 025 9:00 PM Luana Lima RN 2. Non-Specific Active Suici ashvin Thoughts (Past 1 Month) No 03/11/2025 9:00 PM Luana Lima RN 3. Active Suicidal Ideation with any Methods (Not Plan) Without Intent to Act (Past 1 Month) Yes 03/11/2025 9:00 PM Tia Lima RN 4. Active Suicidal Ideation with Some Intent to Act, Without Specific Plan (Past 1 Month) Yes 03/11/2025 9:00 PM EDT Tia Gonzalez RN 5. Active Suicidal Ideation with Specific Plan and Intent (Past 1 Month) Yes 03/11/2025 9:00 PM EDT Luana Gonzalez RN 6. Suicidal Behavior (Lifetime) Yes 5 9:00 PM EDT Luana Gonzalez RN 6. Suicidal Behavior (3 Months) Yes 5 9:00 PM EDT Luana Gonzalez RN documented as of this encounter Plan of Treatment Not on file documented as of this encounter Visit Diagnoses Not on filedocumented in this encounter Additional Health Concerns Assessment Noted Time PHQ-9 Depression Total Score: 20 025 2:27 PM EDT A fall risk assessment has been complete d for the patient 12/13/2024 2:03 PM EDT A Body Mass Index follow-up plan has been documented for the patient 12/13/2024 2:46 PM EDT documented as of this encounter Care Teams Back Hanger Relationship Specialty Start Date End Date System, Provider Not In, [address] [place] [address] PCP - General Family Medicine 03/11/25 Cora Razo MD [address] [place] [address] 03/11/25 documented as of this encounter
--- OUTSIDE RECORDS SUMMARY | 2025-05-10 12:16 | XMS_ITS | Encounter Summary ---
[facility] [address] [place] [address] Care Team Providers Care Bench Worker Binding Name Role Phone Itzel Hoffmann ACCOUNT PROCESSOR Primary Care Provider [phone] Reason for Visit * Reason Onset Date Comments Results 05/04/2025 Encounter Details Date Type Department Care Team (Late st Contact Info) Description 05/04/2025 Telephone [facility] [address] [place] [address] Itzel Hoffmann, ACCOUNT PROCESSOR [address] [place] [phone] Results Social History Tobacco Use Types Packs/Day Years [...] Telephone Encounter - Celina Hudson MA - 05/07/2025 5:53 PM EDT Spoke with patient over labs * Telephone Encounter - Aundrea Fischer RegSched Rep - 05/04/2025 12:54 PM EDT Caller: Joyce Awad Relationship: Self Best call back number: [phone] Caller requesting test results: LABS What test was performed: LABS When was the test performed: 8.14 Where was the test performed: OFFICE Additional notes: PLEASE CALL WITH RESULTS documented in this encounter Plan of Treatment Upcoming Encounters Date Type Department Care Team (Late st Contact Info) Description 05/11/2025 10:45 AM EDT Office Visit [facility] [address] [place] [address] [place] [address] Itzel Hoffmann APRN [address] [place] [address] 06/04/2025 9:00 AM EDT Office Visit [facility] [address] [place] [address] [place] [address] Itzel Hoffmann APRN [address] [place] [address] 06/08/2025 2:00 PM EDT Office Visit [facility] [address] [place] [address] [place] [address] Itzel Hoffmann APRN [address] [place] [address] 05/07/2026 11:30 AM EDT Office Visit [facility] [address] [place] [address] Brook Barrera APRN [address] [place] [address] documented as of this encounter Visit Diagnoses Not on filedocumented in this encounter Care Teams Bench Worker Binding Relationship Specialty Start Date End Date Itzel Hoffmann, ACCOUNT PROCESSOR [address] [place] [address] PCP - General Family Medicine 10/06/24 documented as of this encounter
--- OUTSIDE RECORDS SUMMARY | 2025-05-10 12:16 | XMS_ITS | Encounter Summary ---
Author Organization [facility] Address [address] [place] [address] Care Team Providers Care Manager Office Name Role Phone Itzel Hoffmann APRN Primary Care Provider [phone]- [phone] Encounter Details Date Type Department Care Team (Latest Contact Info) Description 05/02/2025 Travel Social History Tobacco Use Types Packs/Day [...] Description 05/11/2025 10:45 AM EDT Office Visit [facility] [address] [place] [phone] Itzel Hoffmann APRN [address] [place] [address] 06/04/2025 9:00 AM EDT Office Visit [facility] [address] [place] [address] [place] [address] Itzel Hoffmann APRN [address] [place], [place] [id number] 06/08/2025 2:00 PM EDT Office Visit [facility] [address] [place] [address] [place] [address] Itzel Hoffmann APRN [address] [place], [place] [phone] 05/07/2026 11:30 AM EDT Office Visit [facility] [address] [address] Brook Barrera APRN [address] [place], [place] [id number] documented as of this encounter Visit Diagnoses Not on filedocumented in this encounter Care Teams Manager Office Relationship Specialty Start Date End Date Itzel Hoffmann APRN [address] [place] [address] PCP - General Family Medicine 10/06/24 documented as of this encounter
--- OUTSIDE RECORDS SUMMARY | 2025-05-10 12:16 | XMS_ITS | Encounter Summary ---
Author Organization [facility] Address [address] [place] [address] Care Team Providers Care Stone Planer Name Role Phone Jamaal Hoffmann AXLE TURNER Primary Care Provider [phone]- [phone] Reason for Visit * Reason Onset Date Comments Med Management 03/21/2025 Encounter Details Date Type Department Care Team (Late st Contact Info) Description 03/21/2025 Telephone [facility] [address] [place] [phone] Jamaal Hoffmann, AXLE TURNER [address] [place], [place] [phone] Med Management Social History Tobacco Use Types Packs/Day Years [...] encounter Miscellaneous Notes * Telephone Encounter - Paige Baltazar MA - 03/21/2025 11:27 AM EDT Patient will see Jamaal tomorrow and discuss with her then. * Telephone Encounter - Mary Moon RegSched Rep - 03/21/2025 8:19 AM EDT Caller: Joyce AWAD Relationship: Self Best call back number: [phone] What is the best time to reach you: SOON POSSIBLE Who are you requesting to speak with (clinical staff, provider, specific staff member): JAMAAL HOFFMANN What was the call regarding: MEDICATION ISSUES documented in this encounter Plan of Treatment Upcoming Encounters Date Type Department Care Team (Late st Contact Info) Description 05/11/2025 10:45 AM EDT Office Visit [facility] [address] [place] [address] [place] [phone] Jamaal Hoffmann APRN [address] [place] [address] 06/04/2025 9:00 AM EDT Office Visit [facility] [address] [place] [address] [place] [phone] Jamaal Hoffmann APRN [address] [place] [address] 06/08/2025 2:00 PM EDT Office Visit [facility] [address] [place] [phone] Jamaal Hoffmann APRN [address] [place] [address] 05/07/2026 11:30 AM EDT Office Visit [facility] [address] [place] [address] Brook Barrera APRN [address] [place] [address] documented as of this encounter Visit Diagnoses Not on filedocumented in this encounter Care Teams Stone Planer Relationship Specialty Start Date End Date Jamaal Hoffmann APRN [address] [place], [place] [phone] PCP - General Family Medicine 10/06/24 documented as of this encounter
--- OUTSIDE RECORDS SUMMARY | 2025-05-10 12:16 | XMS_ITS | Clinical Summary ---
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 Result Performing Organization Address [facility] Phone Number [facility] [address] [place] [address] * Free T4, Plasma (03/11/2025 9:45 PM EDT) Free T4, Plasma 1.2 0.8 - 1.7 ng/dL 03/11/2025 10:30 PM EDT [facility] Blood Venous blood specimen / Unknown Venipuncture / Unknown 03/11/2025 9:45 PM EDT 03/11/2025 10:00 PM EDT Narrative [facility] - 03/11/2025 10:30 PM EDT Free T4 Trimester Specific Ranges 1st Trimester 0.9 - 1.50 ng/dL 2nd Trimester 0.7 - 1.40 ng/dL 3rd Trimester 0.7 - 1.24 ng/dL Petrona DARBY LAB BLOOD ORDERABLES Final Result Performing Organization Address [facility] de Phone Number [facility] [address] [place] [address] * (ABNORMAL) Magnesium (03/11/2025 9:45 PM EDT) Magnesium, Plasma 1.8(L) 1.9 - 2.4 mg/dL 03/11/2025 10:29 PM EDT [facility] Blood Venous blood specimen / Unknown Venipuncture / Unknown 03/11/2025 9:45 PM EDT 03/11/2025 10:00 PM EDT us Petrona DARBY LAB BLOOD ORDERABLES Final Result Performing Organization Address [facility] de Phone Number [facility] [address] [place] [address] * Salicylate level (03/11/2025 9:45 PM EDT) Salicylate, Quantitative, Plasma <1.0 <25 mg/dL mg/dL 03/11/2025 10:29 PM EDT [facility] Blood Venous blood specimen / Unknown Venipuncture / Unknown 03/11/2025 9:45 PM EDT 03/11/2025 10:00 PM EDT Narrative [facility] - 03/11/2025 10:29 PM EDT Therapeutic Range: <25 mg/dL Supratherapeutic Level: >30 mg/dL us Petrona DARBY LAB BLOOD ORDERABLES Final Result Performing Organization Address [facility] Phone Number [facility] [address] [place] [address] * (ABNORMAL) CMP (03/11/2025 9:45 PM EDT) Glucose, Plasma 76 74 - 99 mg/dL 03/11/2025 10:29 PM EDT [facility] BUN, Plasma 6(L) 7 - 21 mg/dL 03/11/2025 10:29 PM EDT [facility] Creatinine, Plasma 0.56(L) 0.60 - 1.10 mg/dL 03/11/2025 10:29 PM EDT [facility] BUN/Creatinine Ratio 11 03/11/2025 10:29 PM EDT [facility] Sodium, Plasma 139 136 - 145 mmol/L 03/11/2025 10:29 PM EDT [facility] Potassium, Plasma 3.6 3.6 - 4.9 mmol/L 03/11/2025 10:29 PM EDT [facility] Chloride, Plasma 104 97 - 107 mmol/L 03/11/2025 10:29 PM EDT [facility] CO2, Plasma 21(L) 22 - 29 mmol/L 03/11/2025 10:29 PM EDT [facility] Anion Gap 14 6 - 16 mmol/L 03/11/2025 10:29 PM EDT [facility] Total Calcium, Plasma 9.0 8.9 - 10.2 mg/dL 03/11/2025 10:29 PM EDT [facility] Total Protein 6.6 6.3 - 7.9 g/dL 03/11/2025 10:29 PM EDT [facility] Albumin, Plasma 4.3 3.5 - 5.2 g/dL 03/11/2025 10:29 PM EDT [facility] AST, Plasma 18 10 - 35 U/L 03/11/2025 10:29 PM EDT [facility] ALT, Plasma 8(L) 10 - 35 U/L 03/11/2025 10:29 PM EDT [facility] Alkaline Phosphatase, Plasma 38 35 - 104 U/L 03/11/2025 10:29 PM EDT [facility] Total Bilirubin, Plasma 0.2 0.2 - 1.1 mg/dL 03/11/2025 10:29 PM EDT [facility] eGFRcr 126.9 mL/min/1.7 3m*2 03/11/2025 10:29 PM EDT [facility] Comment:Reported eGFRcr in m L/min/1.73m2 is based the CKD-EPI 2020 equation that does not use a race coefficient. Blood Venous blood specimen / Unknown Venipuncture / Unknown 03/11/2025 9:45 PM EDT 03/11/2025 10:00 PM EDT us Petrona DARBY LAB BLOOD ORDERABLES Final Result [facility] [address] [place] [address] from Last 3 Months Insurance [employer] Care Teams Neuropathologist Relationship Specialty Start Date End Date System, Provider Not In, [address] [place] [address] PCP - General Family Medicine 03/11/25 Cora Razo MD [address] [place] [address] 03/11/25
--- OUTSIDE RECORDS SUMMARY | 2025-05-10 12:16 | XMS_ITS | Encounter Summary ---
[facility] Address [address] [place] [address] Care Team Providers Care Photograph Tinter Name Role Phone Itzel Hoffmann APRN Primary Care Provider +1- [phone] Reason for Visit * Reason Onset Date Comments Med Refill 05/03/2025 Encounter Details Date Type Department Care Team (Late st Contact Info) Description 05/03/2025 Refill [facility] [address] [place] [phone] Itzel Hoffmann APRN [address] [place] [address] [phone] Social History Tobacco Use Types Packs/Day Years [...] encounter Miscellaneous Notes * Telephone Encounter - Stacey Quiros RegSched Rep - 05/03/2025 3:14 PM EDT Caller: Joyce Awad Relationship: Self Best call back number: [phone] Requested Prescriptions: Requested Prescriptions Pending Prescriptions Disp Refills sertraline (ZOLOFT) 50 MG tablet 30 tablet 0 Sig: Take 1 tablet by mouth Daily. Pharmacy where request should be sent: [id number] - [place], [place] - [address] [place] [address] [facility] [phone] FX Last office visit with prescribing clinician: 05/03/2025 Last telemedicine visit with prescribing clinician: Visit date not found Next office visit with prescribing clinician: 05/11/2025 Additional details provided by patient: THE PATIENT REPORTS SHE IS OUT OF MEDICATION AND FORGOT TO ASK FOR HER REFILL AT HER APPOINTMENT TODAY, 05/03/2025. THE PATIENT WAS ADVISED TO WEAN OFF THE ZOLOFT BECAUSE SHE IS STARTING A NEW MEDICATION THAT WAS PRESCRIBED TODAY. Does the patient have less than a 3 day supply: [x] Yes [] No Would you like a call back once the refill request has been completed: [] Yes [x] No If the office needs to give you a call back, can they leave a voicemail: [] Yes [x] No Benito Matos Rep 05/03/25 15:15 EDT documented in this encounter Plan of Treatment Upcoming Encounters Date Type Department Care Team (Late st Contact Info) Description 05/11/2025 10:45 AM EDT Office Visit [facility] [address] [place] [address] [place] [phone] Itzel Hoffmann APRN [address] [place] [address] 06/04/2025 9:00 AM EDT Office Visit [address] [place] [phone] Itzel Hoffmann APRN [address] [place], [place] [phone] 06/08/2025 2:00 PM EDT Office Visit [facility] [address] [place] [address] [place] [phone] Itzel Hoffmann APRN [address] [place], [place] [phone] 05/07/2026 11:30 AM EDT Office Visit [facility] [address] [place] [address] Brook Barrera APRN [address] [place] [address] [phone] documented as of this encounter Visit Diagnoses Not on filedocumented in this encounter Care Teams Photograph Tinter Relationship Specialty Start Date End Date Itzel Hoffmann, MAIK [address] [place] [address] [phone] PCP - General Family Medicine 10/06/24 documented as of this encounter
--- OUTSIDE RECORDS SUMMARY | 2025-05-10 12:16 | XMS_ITS | Encounter Summary ---
Author Organization [facility] Address [address] [place] [address] Care Team Providers Care Rock Wool Insulator Name Role Phone Itzel Hoffmann APRN Primary Care Provider +1- [phone] Reason for Visit * Reason Onset Date Comments ED - Called Back For Treatment Only 04/23/2025 Encounter Details Date Type Department Care Team (Late st Contact Info) Description 04/23/2025 Telephone [facility] [address] [place] [phone] Itzel Hoffmann APRN [address] [place] [address] ED - Called Back For Treatment Only Social History Tobacco Use Types Packs/Day Years [...] Telephone Encounter - Celina Hudson MA - 04/23/2025 11:15 AM EDT Called and left a message advising patient that Itzel is out of the office until Wednesday. * Telephone Encounter - Melany Dias RegSched Rep - 04/23/2025 11:08 AM EDT Caller: Joyce Awad Relationship: Self Best call back number: Telephone Information: What was the call regarding: PATIENT CALLED IN TO FOLLOW UP ON A LETTER THAT Itzel Hoffmann APRNWAS WRITING FOR HER. PLEASE GIVE HER A CALL BACK. documented in this encounter Plan of Treatment Upcoming Encounters Date Type Department Care Team (Late st Contact Info) Description 05/11/2025 10:45 AM EDT Office Visit [facility] [address] [place] [address] [place] [phone] Itzel Hoffmann APRN [address] [place] [address] 06/04/2025 9:00 AM EDT Office Visit [facility] [address] [place] [address] [place] [phone] Itzel Hoffmann APRN [address] [place] [address] 06/08/2025 2:00 PM EDT Office Visit [facility] [address] [place] [address] [place] [phone] Itzel Hoffmann APRN [address] [place] [address] 05/07/2026 11:30 AM EDT Office Visit [facility] [address] [place] [phone] Brook Barrera APRN [address] [place] [address] documented as of this encounter Visit Diagnoses Not on filedocumented in this encounter Care Teams Rock Wool Insulator Relationship Specialty Start Date End Date Itzel Hoffmann, AIR [employer]W SUPERVISOR [address] [place], [place] [phone] PCP - General Family Medicine 10/06/24 documented as of this encounter
--- OUTSIDE RECORDS SUMMARY | 2025-05-10 12:16 | XMS_ITS | Encounter Summary ---
Author Organization [facility] Address [address] [place] [address] Care Team Providers Care Dietetic Assistant Name Role Phone Itzel Hoffmann APRN Primary Care Provider +1- [phone] Encounter Details Date Type Department Care Team (Latest Contact Info) Description 03/15/2025 Travel Social History Tobacco Use Types Packs/Day [...] Description 05/11/2025 10:45 AM EDT Office Visit [facility] [address] [place] [phone] Itzel Hoffmann APRN [address] [place] [address] 06/04/2025 9:00 AM EDT Office Visit [facility] [address] [place] [address] [place] [phone] Itzel Hoffmann APRN [address] [place] [address] 06/08/2025 2:00 PM EDT Office Visit [facility] PRIMARY [address] [place] [phone] Itzel Hoffmann APRN [address] [place], [place] [phone] 05/07/2026 11:30 AM EDT Office Visit [facility] [address] [place] [phone] Brook Barrera APRN [address] [place], [place] [phone] documented as of this encounter Visit Diagnoses Not on filedocumented in this encounter Additional Health Concerns Infection Onset Date Last Indicated Resolved Time COVID (confirmed) 07/21/2022 07/21/2022 03/15/2025 9:08 PM EDT documented as of this encounter Care Teams Dietetic Assistant Relationship Specialty Start Date End Date Itzel Hoffmann APRN [address] [place] [phone] PCP - General Family Medicine 10/06/24 documented as of this encounter
--- OUTSIDE RECORDS SUMMARY | 2025-05-10 12:16 | XMS_ITS | Encounter Summary ---
[facility] Address [address] [place] [address] Care Team Providers Care Head Doffer Name Role Phone Itzel Hoffmann YARD PILOT Primary Care Provider +1- [phone] Encounter Details Date Type Department Care Team (Late st Contact Info) Description 05/04/2025 Results Follow-Up [facility] [address] [place] [phone] Itzel Hoffmann, YARD PILOT [address] [place], [place] [phone] Social History Tobacco Use Types Packs/Day Years [...] Telephone Encounter - Celina Hudson MA - 05/04/2025 4:53 PM EDT Called and spoke with patient and advised her of labs and she verbalized understanding documented in this encounter Plan of Treatment Upcoming Encounters Date Type Department Care Team (Late st Contact Info) Description 05/11/2025 10:45 AM EDT Office Visit [facility] PRIMARY [address] [place] [phone] Itzel Hoffmann APRN 6 [place] [address] 06/04/2025 9:00 AM EDT Office Visit [address] [place] [phone] Itzel Hoffmann APRN [address] [place], [place] [phone] 06/08/2025 2:00 PM EDT Office Visit [address] [place] [phone] Itzel Hoffmann APRN [address] [place], [place] [phone] 05/07/2026 11:30 AM EDT Office Visit [facility] [address] [facility] [address] Brook Barrera APRN [address] [place] [address] documented as of this encounter Visit Diagnoses Not on filedocumented in this encounter Care Teams Head Doffer Relationship Specialty Start Date End Date Itzel Hoffmann APRN [address] [place] [phone] PCP - General Family Medicine 10/06/24 documented as of this encounter
--- OUTSIDE RECORDS SUMMARY | 2025-05-10 12:16 | XMS_ITS | Encounter Summary ---
Author Organization [facility] Address [address] [place] [address] Care Team Providers Care Solar Energy Specialist Name Role Phone Itzel Hoffmann APRN Primary Care Provider +1- [phone] Encounter Details Date Type Department Care Team (Latest Contact Info) Description 03/22/2025 Travel Social History Tobacco Use Types Packs/Day [...] Description 05/11/2025 10:45 AM EDT Office Visit [facility] [address] [place] [phone] Itzel Hoffmann APRN [address] [place] [address] 06/04/2025 9:00 AM EDT Office Visit [facility] [address] [place] [address] [place] [phone] Itzel Hoffmann APRN [address] [place], [place] [phone] 06/08/2025 2:00 PM EDT Office Visit [facility] [address] [place] [address] [place] [phone] Itzel Hoffmann APRN [address] [place], [place] [phone] 05/07/2026 11:30 AM EDT Office Visit [facility] [address] [facility] [place] [address] Brook Barrera APRN [address] [place], [place] [phone] documented as of this encounter Visit Diagnoses Not on filedocumented in this encounter Care Teams Solar Energy Specialist Relationship Specialty Start Date End Date Itzel Hoffmann APRN [address] [place] [address] PCP - General Family Medicine 10/06/24 documented as of this encounter
--- OUTSIDE RECORDS SUMMARY | 2025-05-10 12:16 | XMS_ITS | Encounter Summary ---
[facility] Address [address] [place] [address] Care Team Providers Care Merry Go Round Attendant Name Role Phone Itzel Hoffmann APRN Primary Care Provider +1- [phone] Reason for Visit * Reason Comments Med Refill Encounter Details Date Type Department Care Team (Late st Contact Info) Description 05/03/2025 Refill [facility] [address] [place] [phone] Itzel Hoffmann APRN [address] [place] [address] Social History Tobacco Use Types Packs/Day Years [...] Encounter - Celina Hudson MA - 05/04/2025 7:50 AM EDT Patient is tapering down on medicine does not need this refill documented in this encounter Plan of Treatment Upcoming Encounters Date Type Department Care Team (Late st Contact Info) Description 05/11/2025 10:45 AM EDT Office Visit [address] [place] [phone] Itzel Hoffmann APRN [address] [place] [address] 06/04/2025 9:00 AM EDT Office Visit [address] [place] [address] Itzel Hoffmann APRN [address] [place] [address] 06/08/2025 2:00 PM EDT Office Visit [address] [place] [address] Itzel Hoffmann APRN [address] [place] [address] 05/07/2026 11:30 AM EDT Office Visit [facility] [address] [place] [address] Brook Barrera APRN [address] [place] [address] documented as of this encounter Visit Diagnoses Not on filedocumented in this encounter Care Teams Merry Go Round Attendant Relationship Specialty Start Date End Date Itzel Hoffmann APRN [address] [place] [address] PCP - General Family Medicine 10/06/24 documented as of this encounter
--- OUTSIDE RECORDS SUMMARY | 2025-05-10 12:16 | XMS_ITS | Encounter Summary ---
[facility] Address [address] [place] [address] Care Team Providers Care Ticketing Agent Name Role Phone Itzel Hoffmann APRN Primary Care Provider +1- [phone] Encounter Details Date Type Department Care Team (Late st Contact Info) Description 03/14/2025 Telephone [facility] [address] [place] [phone] Itzle Hoffmann APRN [address] [place] [address] [phone] Social History Tobacco Use Types Packs/Day Years [...] Telephone Encounter - Celina Hudson MA - 03/14/2025 9:00 AM EDT Patient wants nicotine patches called in to her pharmacy. documented in this encounter Plan of Treatment Upcoming Encounters Date Type Department Care Team (Late st Contact Info) Description 05/11/2025 10:45 AM EDT Office Visit [facility] [address] [place] [address] [place] [address] Itzel Hoffmann APRN 6 [place] [address] 06/04/2025 9:00 AM EDT Office Visit [address] [place] [address] Itzel Hoffmann APRN [address] [place] [address] 06/08/2025 2:00 PM EDT Office Visit [address] [place] [address] Itzel Hoffmann APRN [address] [place] [address] 05/07/2026 11:30 AM EDT Office Visit [facility] [address] [facility] [place] [address] Brook Barrera APRN [address] [place] [address] documented as of this encounter Visit Diagnoses Diagnosis Encounter for smoking cessation counseling- Primary documented in this encounter Care Teams Ticketing Agent Relationship Specialty Start Date End Date Itzel Hoffmann APRN [address] [place] [address] PCP - General Family Medicine 10/06/24 documented as of this encounter
== END 2025-05-10 23:59 | disposition home or self-care (01) ==
LOC: RAD 12:13
PROVIDERS: PCP Nurse Practitioner; Visit Provider Internal Medicine Gastroenterology
DX: K59.04 Chronic idiopathic constipation (principal)
CPT/HCPCS: 74018

== ENCOUNTER 2025-07-16 07:14 | Day surgery (SDC) | payer MEDICAID, SELFPAY ==
--- NOTE | 2025-07-12 07:14 | EXP.HP ---
History of Present Illness *Admission Date: 07/16/25 *History of present illness: Mrs. Awad is a 29-year-old female who is here for diagnostic EGD and colonoscopy. The patient had seen Dr. Tavraes Alegre 6 years ago and did have panendoscopy. She was told that she had chronic gastritis and GERD. She was placed on omeprazole. She did not want to keep taking this and had some fear of osteopenia/osteoporosis with PPI. The patient primarily reports chronic constipation with bloating, gassiness and abdominal discomfort. She does take Dulcolax 2 times monthly which helps but the Dulcolax results in some pain and cramping. The patient did change her diet and has had some intentional but also some unintentional weight loss. She also primarily reports left upper quadrant abdominal pain which is constant and daily. This is nagging and 3?4 out of 10 on the pain scale but sometimes can be excruciating. She has had some intermittent rectal bleeding and this often occurs when she feels ripping or tearing (i.e. anal fissure). She does note occasional mucus with her bowel movements. She has changed her diet and eats a lot of veggies now. She does state that there was colon cancer on her grandmother side. [facility] Disclaimer: The information contained in this section may have been updated after the patient was seen, as this information can be updated by other users. Medical History JOHNATHAN (obstructive sleep apnea) Depression Thyroid disease SVT (supraventricular tachycardia) Hypertension GERD (gastroesophageal reflux disease) Anxiety Surgical History History of Hx of tonsillectomy Family History Mother Diverticulitis Other Cancer Social History Smoking Status: Current some day smoker alcohol intake: current alcohol intake frequency: holidays/special occasions only substance use type: marijuana current occupational status: unemployed and student Travel in the last 8 weeks?: None Have you lived/traveled outside US in past 30 days?: No Contact w/someone who lives/traveled outside US past 30 days?: No Exposure to someone with infectious disease in past 14 days?: No Do you have a fever (greater than 100.4 F or 38 C)?: No Have you tested positive for COVID-19?: No Exposed to someone with COVID-19 in past 14 days?: No Do you have a sore throat?: No Do you have a cough?: No Do you have any weakness?: No Do you have any diarrhea?: No Are you experiencing any unusual bleeding?: No Do you have any muscle aches/pain?: No Do you have any abdominal pain?: No Are you experiencing loss of taste or smell?: No Review of Systems Review of Systems Review of systems (narrative): Negative *Cardiovascular Comments: Negative *Gastrointestinal Comments: Negative *Genitourinary Comments: Negative *Musculoskeletal Comments: Negative *Neurologic Comments: Negative Meds Home Medications and Allergies Home Medications ?Medication ?Instructions ?Recorded ?Confirmed ?Type albuterol sulfate 90 mcg/actuation 1 puff inhalation QID 05/08/25 07/16/25 History aerosol inhaler (Ventolin HFA) carvedilol 3.125 mg tablet 3.125 mg PO DAILY 05/08/25 07/16/25 History lamotrigine 100 mg tablet 150 mg PO DAILY 05/08/25 07/16/25 History levothyroxine 25 mcg tablet 25 mcg PO DAILY 05/08/25 07/16/25 History sertraline 50 mg tablet 50 mg PO DAILY 05/08/25 07/16/25 History sodium,potassium,mag sulfates 17.5 See Rx Instructions PO .COMPLEX 07/02/25 07/16/25 Rx gram-3.13 gram-1.6 gram oral soln #354 mL (Suprep Bowel Prep Kit) linaclotide 145 mcg capsule 145 mcg PO DAILY 07/16/25 07/16/25 History (Linzess) New Prescriptions to Start Prescriptions: Allergies Allergy/AdvReac Type Severity Reaction Status Date / Time No Known Allergies Allergy Verified 07/16/25 07:42 Exam *Routine HEENT Exam Head: Present normocephalic Eye: Present EOMI and PERRL ENT: Present mucous membranes moist *Routine Neck Exam Neck: Present supple *Routine Respiratory Exam Respiratory: Present CTA bilaterally *Routine Cardiovascular Exam Cardiovascular: Present RRR *Routine Abdominal Exam Abdominal: Present soft and normoactive bowel sounds; Absent tenderness *Routine Rectal Exam Rectal:: deferred *Routine Genitalia Exam Genitalia:: deferred *Routine Extremities Exam Extremities: Absent cyanosis, clubbing or edema *Routine Skin Exam Skin: Present warm; Absent rash *Routine Neurological Exam Neurological: Present alert and oriented X3 Assessment and Plan *Assessment and plan (1) GERD (gastroesophageal reflux disease): Status: Acute Category: Medical Code(s): K21.9 - Gastro-esophageal reflux disease without esophagitis (2) Chronic gastritis: Status: Acute Category: Medical Code(s): K29.50 - Unspecified chronic gastritis without bleeding (3) Nausea: Status: Acute Category: Medical Code(s): R11.0 - Nausea (4) Bloating: Status: Acute Category: Medical Code(s): R14.0 - Abdominal distension (gaseous) (5) Left upper quadrant abdominal pain: Status: Acute Category: Medical Code(s): R10.12 - Left upper quadrant pain (6) Functional abdominal pain syndrome: Status: Acute Category: Medical Code(s): R10.9 - Unspecified abdominal pain (7) Splenic flexure syndrome: Status: Acute Category: Medical Code(s): K63.9 - Disease of intestine, unspecified (8) Chronic idiopathic constipation: Status: Acute Category: Medical Code(s): K59.04 - Chronic idiopathic constipation Plan A/P: 1. GERD with chronic gastritis, nausea and bloating for upper endoscopy and left upper quadrant abdominal pain/splenic flexure syndrome and constipation for colonoscopy is the preprocedural diagnosis. The patient will be anesthetized/sedated using MAC sedation. The patient has been seen and examined. Cardiac and lung assessment prior to the examination is stable. Proceed with planned diagnostic EGD and colonoscopy.
[2025-07-12 10:52] VITALS: BMI 23.4
--- NOTE | 2025-07-16 06:59 | P.PCN_ITS ---
[facility] Procedure Note Date: 07/16/25 Time: 08:43 Procedure Note:: Upper Endoscopy Procedure Report: Esophagogastroduodenoscopy with cold biopsies Endoscopost: Saulo Adames II, MD Referring Physician: Itzel Hoffmann, [address], [address], [place] [address] Date of Procedure: July 16, 2025 Equipment: Olympus GIF-1100 standard upper endoscope Sedation: MAC sedation Indications: Mrs. Awad is a 29-year-old female who is here for diagnostic EGD and colonoscopy. The patient primarily reports chronic constipation with bloating, gassiness and abdominal discomfort. She was taking Dulcolax 2 times monthly which helps but the Dulcolax results in some pain and cramping. I had prescribed Trulance which was not covered. She was placed on Linzess 145 mcg by mouth every morning and this has helped significantly improved bowel function and evacuation. She is no longer having as much bloating or the anal rectal bleeding and pain. The patient did change her diet and has had some intentional but also some unintentional weight loss. She also reports left upper quadrant abdominal pain which is constant and daily. This is nagging and 3?4 out of 10 on the pain scale but sometimes can be excruciating. She had previously had some intermittent rectal bleeding and this often occurs when she feels ripping or tearing (i.e. anal fissure). She does note occasional mucus with her bowel movements. She has changed her diet and eats a lot of veggies now. She does state that there was colon cancer on her grandmother side. The patient had seen Dr. Tavares Alegre 6 years ago and did have panendoscopy. She was told that she had chronic gastritis and GERD. She was placed on omeprazole. She did not want to keep taking this and had some fear of osteopenia/osteoporosis with PPI. Procedure: Prior to the procedure, a history and physical exam was performed, and patient's medications and allergies were reviewed. The risks, benefits and alternatives of the sedation and procedure were discussed with the patient. All questions were answered and informed consent was obtained. The patient was brought to the procedure room. Patient identification and proposed procedure were verified by the physician and the nurse. The patient was placed in a left lateral decubitus position and the scope was passed under direct vision. Throughout the procedure, the patient's blood pressure, pulse, and oxygen saturations were monitored continuously. The upper GI endoscopy was accomplished without difficulty. The patient tolerated the procedure well. Findings: The scope was passed directly into the upper esophagus and advanced to the third portion of the duodenum. The post bulbar duodenum, ampulla and duodenal bulb were normal with normal mucosa and conniventes. 2 cold biopsies were taken from the second portion of the duodenum for the disaccharidase assay. The scope was withdrawn through a normal duodenal bulb and pylorus into the stomach. The antrum, body and fundus of the stomach were grossly normal. Upon retroflexion there was no hiatal hernia. Cold biopsies were taken from the antrum to rule out H. pylori. The scope was then withdrawn into the esophagus. There was no evidence of reflux esophagitis or Chirinos's. The remainder of the esophageal mucosa was normal. Impression: 1. Normal upper endoscopy Plan: I will follow-up the biopsies and disaccharidase assay. I will proceed with diagnostic colonoscopy.
--- NOTE | 2025-07-16 07:01 | HMH.PROCNOTE ---
[facility] Procedure Note Date: 07/16/25 Time: 08:55 Procedure Note:: Colonoscopy Procedure Report: Colonoscopy Endoscopist: Saulo Adames II, MD Referring physician: Itzel Hoffmann, [address], [address], [place] [address] Date of Procedure: July 16, 2025 Equipment: Olympus [id number] adult colonoscope Sedation: MAC sedation Indication: Mrs. Awad is a 29-year-old female who is here for diagnostic EGD and colonoscopy. The patient primarily reports chronic constipation with bloating, gassiness and abdominal discomfort. She was taking Dulcolax 2 times monthly which helps but the Dulcolax results in some pain and cramping. I had prescribed Trulance which was not covered. She was placed on Linzess 145 mcg by mouth every morning and this has helped significantly improved bowel function and evacuation. She is no longer having as much bloating or the anal rectal bleeding and pain. The patient did change her diet and has had some intentional but also some unintentional weight loss. She also reports left upper quadrant abdominal pain which is constant and daily. This is nagging and 3?4 out of 10 on the pain scale but sometimes can be excruciating. She had previously had some intermittent rectal bleeding and this often occurs when she feels ripping or tearing (i.e. anal fissure). She does note occasional mucus with her bowel movements. She has changed her diet and eats a lot of veggies now. She does state that there was colon cancer on her grandmother side. The patient had seen Dr. Tavares Alegre 6 years ago and did have panendoscopy. She was told that she had chronic gastritis and GERD. She was placed on omeprazole. She did not want to keep taking this and had some fear of osteopenia/osteoporosis with PPI. Procedure: Prior to the procedure, a history and physical exam was performed, and patient's medications and allergies were reviewed. The risks, benefits and alternatives of the sedation and procedure were discussed with the patient. All questions were answered and informed consent was obtained. The patient was brought to the procedure room. Patient identification and proposed procedure were verified by the physician and the nurse. The patient was placed in a left lateral decubitus position and the scope was passed under direct vision. Throughout the procedure, the patient's blood pressure, pulse, and oxygen saturations were monitored continuously. The colonoscopy was accomplished without difficulty. The patient tolerated the procedure well. Findings: On digital rectal examination there was normal rectal tone. There were no external hemorrhoids. There was a healing posterior midline anal fissure. The colonoscope was introduced through the anal canal to the rectum and advanced to the cecum. The ileocecal valve and appendiceal orifice were identified. The scope was advanced a short distance into the ileum which appeared grossly normal. The scope was then withdrawn into the colon. The cecum, ascending, transverse, descending, sigmoid and rectum were grossly normal. There was normal appearing mucosa. There was some angulation at the splenic flexure suggestive of splenic flexure syndrome. Upon retroflexion within the rectum there were grade 1-2 internal hemorrhoids. The preparation was excellent throughout with Amidon Preparation Score of 9. The cecal time was 12 minutes. Impression: 1. Normal colonoscopy with intubation of the terminal ileum 2. 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 Splenic flexure syndrome is a term used to describe bloating, muscle spasms of the colon and upper abdominal pain on the left side and is thought to be caused by trapped gas and stool at the splenic flexure/curvature of the colon which is in the left upper colon. We will discuss treatment options.
[2025-07-16] MEDS: LACTATED RINGERS 1000ML 1,000 ML 50 ML IV (07:42)
[2025-07-16 07:46] VITALS: BP 117/80; PULSE 67; RESP 18; TEMP 36.2; O2SAT 100
[2025-07-16 07:50] LABS: Urine Pregnancy, HCG Qual. Negative (Negative)
--- NOTE | 2025-07-16 07:59 | P.PNANES_ITS ---
[facility] Disclaimer: The information contained in this section may have been updated after the patient was seen, as this information can be updated by other users. Medical History JOHNATHAN (obstructive sleep apnea) Depression Thyroid disease SVT (supraventricular tachycardia) Hypertension GERD (gastroesophageal reflux disease) Anxiety Surgical History History of Hx of tonsillectomy Family History Mother Diverticulitis Other Cancer Social History Smoking Status: Current some day smoker alcohol intake: current alcohol intake frequency: holidays/special occasions only substance use type: marijuana current occupational status: unemployed and student Travel in the last 8 weeks?: None Have you lived/traveled outside US in past 30 days?: No Contact w/someone who lives/traveled outside US past 30 days?: No Exposure to someone with infectious disease in past 14 days?: No Do you have a fever (greater than 100.4 F or 38 C)?: No Have you tested positive for COVID-19?: No Exposed to someone with COVID-19 in past 14 days?: No Do you have a sore throat?: No Do you have a cough?: No Do you have any weakness?: No Do you have any diarrhea?: No Are you experiencing any unusual bleeding?: No Do you have any muscle aches/pain?: No Do you have any abdominal pain?: No Are you experiencing loss of taste or smell?: No [facility] Anesthesia Checklist Patient Identification Patient Identification: Arm Band and Verbal (Name & ) Structural Data Admitted From: Home Planned Operative Procedure/s: EGD and colonscopy Consent for Planned Operative Procedure(s) Verified: Yes Verified Documents: Surgical Consent and History and Physical NPO Status Verified Time NPO: 00:00 Additional verifications Patient : No Anesthesia Reactions: No Previous Colonoscopy: Yes Airway Assessment Mallampati Score:: Class II Dentition: Good Dentition Neurological Assessment Level of Consciousness: Awake, Alert and Appropriate Hx Seizures: No Numbness or tingling in extremities: No Anesthesia Plan Anesthesia Risk discussed: Yes Anesthesia Plan: Verified ASA Class: II Anesthesia Type: MAC
[2025-07-16 09:00] VITALS: BP 94/57; PULSE 52; RESP 16; TEMP 36.2; O2SAT 100
[2025-07-16 09:10] VITALS: BP 96/59; PULSE 48; RESP 18; TEMP 36.2; O2SAT 100
[2025-07-16 09:20] VITALS: BP 124/84; PULSE 61; RESP 18; TEMP 36.2; O2SAT 100
[2025-07-16 09:30] VITALS: BP 118/78; PULSE 62; RESP 18; TEMP 36.2; O2SAT 100
[2025-07-20 12:12] LABS: Interpretation Notes (.); Lactase 24.22 (>/= 14.0); Maltase 140.33 (>/= 110.0); Palatinase 8.55 (>/= 8.5); Reference Notes (.); Sucrase 28.49 (>/= 25.0)
== END 2025-07-16 09:30 | disposition home or self-care (01) ==
PROVIDERS: PCP Nurse Practitioner; Visit Provider Internal Medicine Gastroenterology
PROC: 0DJ08ZZ Inspection of Upper Intestinal Tract, Via Natural or Artificial Opening Endoscopic (ICD-10-PCS; CPT 45378; principal; 2025-07-16 08:30)
DX: K21.9 Gastro-esophageal reflux disease without esophagitis (principal); K59.89 Other specified functional intestinal disorders; K59.04 Chronic idiopathic constipation; K29.50 Unspecified chronic gastritis without bleeding; K64.0 First degree hemorrhoids; K64.1 Second degree hemorrhoids; Z80.0 Family history of malignant neoplasm of digestive organs; F17.210 Nicotine dependence, cigarettes, uncomplicated; I10 Essential (primary) hypertension; E07.9 Disorder of thyroid, unspecified; I47.10 Supraventricular tachycardia, unspecified; F32.A Depression, unspecified
CPT/HCPCS: 43239; 45378; 81025; 82657; J2003; J2704; J7120